=== PATIENT | female | born 1985 | race Caucasian/White ===

== ENCOUNTER 2018-03-02 20:00 | Emergency (ER) | payer OTHER ==
[2018-03-02 20:36] VITALS: RESP 16
[2018-03-02] MEDS ORDERED: HYDROcodone/APAP 5-325MG 1 EACH TAB PO STA (20:51)
--- NOTE | 2018-03-02 20:56 | ED ---
General Adult HPI - General Chief complaint: Dental/Oral Stated complaint: Dental pain Time Seen by Provider: 03/02/18 20:51 Source: patient, RN notes reviewed Mode of arrival: ambulatory Limitations: no limitations - History of Present Illness Initial comments: 32-year-old female presents to the emergency department for a chief complaint of right tooth pain 4 days. Patient states she went to urgent care 4 days ago for a was given amoxicillin which she is continuing to take. Patient states the pain has continued. Patient states she has taken Motrin and Tylenol which has not helped. Patient denies any fevers or chills at home. Patient states she is following up with [facility] on Sunday which is in 2 days. Patient complains of a dull throbbing pain on the right lower jaw. Patient states the pain is radiating to her right ear and right lower jaw. Patient states she had similar symptoms with the wisdom tooth on the other side isn't needed to be pulled. Patient has no other complaints at this time. Patient denies shortness of breath, chest pain, abdominal pain, nausea or vomiting, headache, or visual changes. Patient is not driving home today. Family member is here and will be driving her home. Family member present at bedside. Patient denies any chance of . - Related Data Home Medications Medication Instructions Recorded Confirmed [id number] 1 each PO Q6HR PRN 09/25/16 09/25/16 [Excedrin] Ibuprofen [Motrin] 400 mg PO DIRECTED PRN 09/25/16 09/25/16 Previous Rx's Medication Instructions Recorded HYDROcodone/APAP 5-325MG [[employer] 1 tab PO Q6HR PRN #10 tab 03/02/18 5-325] Allergies Allergy/AdvReac Type Severity Reaction Status Date / Time No Known Allergies Allergy Verified 09/27/16 08:41 Review of Systems ROS Statement: Those systems with pertinent positive or pertinent negative responses have been documented in the HPI. ROS Other: All systems not noted in ROS Statement are negative. Past Medical History Additional Past Medical History / Comment(s): WPW ([id number] SYNDROME), HX OF DIVERTICULITIS. History of Any Multi-Drug Resistant Organisms: None Reported Past Surgical History: Cardiac Ablation Past Anesthesia/Blood Transfusion Reactions: No Reported Reaction Additional Past Anesthesia/Blood Transfusion Reaction / Comment(s): . Past Psychological History: No Psychological Hx Reported Smoking Status: Never smoker Past Alcohol Use History: Rare Past Drug Use History: None Reported - Past Family History Mother Family Medical History: Cancer, Hypertension Additional Family Medical History / Comment(s): SKIN CANCER; BREAST CANCER; ? UTERINE CANCER. DIVERTICULITIS Father Additional Family Medical History / Comment(s): HEART STENT General Exam Limitations: no limitations General appearance: alert, in no apparent distress Head exam: Present: atraumatic, normocephalic, normal inspection Eye exam: Present: normal appearance, PERRL, EOMI. Absent: scleral icterus, conjunctival injection, periorbital swelling ENT exam: Present: normal oropharynx (Uvula midline), mucous membranes moist, TM 's normal bilaterally, other (Tooth 32 is cracked. Patient has poor dentition. Patient complains of pain around tooth 32. Pain is reproduced by tapping with a tongue blade on to 32. No drainable abscess noted. No drainage from the tooth noted.) Neck exam: Present: normal inspection, full ROM, other (No swelling noted of the right lower jaw. No swelling or redness or any indication of abscess noted to the right neck.). Absent: tenderness, meningismus, lymphadenopathy Course Vital Signs 03/02/18 03/02/18 20:34 21:03 Temperature 97.4 F L 97.0 F L Pulse Rate 70 80 Respiratory 16 16 Rate Blood Pressure 140/91 139/78 O2 Sat by Pulse 98 98 Oximetry Medical Decision Making - Medical Decision Making 32-year-old female presents to the emergency room for a chief complaint of right lower tooth pain 4 days. Patient states she has similar pain in the past with another tooth that she had have pulled by a dentist. Patient states it is worse when hot or cold hits it or she chews. Patient denies any swelling fevers. Patient denies any chills at home. Patient denies any drainage from the tooth. Patient states she went to [facility] 4 days ago and started taking amoxicillin. She has continued the amoxicillin. She was given Motrin for pain which has not helped. She was seen today primarilyy for pain relief. On exam there is a cracked tooth 32. This tooth is tender to tapping of a tongue blade. No drainable abscess noted. Patient will continue the amoxicillin. She was given a [employer] in the emergency department which helped with her pain. Patient is to continue using Motrin for pain. If pain is severe she can use a [employer], which she was given a three-day supply of. Patient does not have any prescriptions on [facility]. She is to follow-up with a dentist in 2 days on Sunday as discussed. She already has an appointment with [facility]. She was also given a referral to a primary care provider to follow-up with. She will return to the emergency Department if she has any worsening symptoms or loses any fevers. Disposition Clinical Impression: Tooth pain Disposition: HOME SELF-CARE Condition: Good Instructions: Toothache (ED) Additional Instructions: Please take Motrin for pain relief. Please take [employer] if pain is severe and Motrin is not helping. Please continue to take amoxicillin. Follow-up with the dentist in 2 days as discussed. Return to the emergency department if you have any worsening symptoms or signs of infection. Prescriptions: HYDROcodone/APAP 5-325MG [[employer] 5-325] 1 tab PO Q6HR PRN #10 tab PRN Reason: Pain Is patient prescribed a controlled substance at d/c from ED?: Yes Referrals: None,Stated [Primary Care Provider] - 1-2 days Brad Miranda DO [STAFF PHYSICIAN] - 1-2 days Time of Disposition: 20:55
[2018-03-02 21:04] VITALS: BP 139/78; PULSE 80; TEMP 97
== END 2018-03-02 21:05 | disposition home or self-care (01) ==
LOC: EC 20:00
DX: K08.89 Other specified disorders of teeth and supporting structures (principal)
CPT/HCPCS: 99283

== ENCOUNTER → 2024-01-25 | Outpatient (CLI) | payer OTHER ==
[2024-01-25 16:08] LABS: HCT 43.8 % (37.2-46.3); HGB 14.3 g/dL (12.0-15.0); MCH 29.4 pg (27.0-32.0); MCHC 32.6 g/dL (32.0-37.0); MCV 90.1 FL (80.0-97.0); Mean Platelet Volume 10.6 FL (9.5-12.2); NRBC Per 100 WBC 0 X 10*3/uL (0.00-0.01); Platelet Count 359 X 10*3/uL (140-440); RBC 4.86 X 10*6/uL (4.10-5.20); RDW 12.3 % (11.5-14.5); WBC 8.06 X 10*3/uL (4.50-10.00)
[2024-01-25 16:23] LABS: ALT 24 U/L (8-44); AST 26 U/L (13-35); Albumin 4.7 g/dL (3.8-4.9); Albumin/Globulin Ratio 1.27 Ratio (1.60-3.17); Alkaline Phosphatase 91 U/L (41-126); Blood Urea Nitrogen 12.9 mg/dL (9.0-27.0); Calcium 9.4 mg/dL (8.7-10.3); Carbon Dioxide 25.2 mmol/L (21.6-31.8); Chloride 104 mmol/L (96-109); Chol/HDL Ratio 5.84 Ratio; Globulin 3.7 g/dL (1.6-3.3); Glucose 93 mg/dL (70-110); LDL Cholesterol,Calculated 139.9 mg/dL (0.0-131.0); Potassium 4.7 mmol/L (3.5-5.5); Sodium 140 mmol/L (135-145); T4, Free (Free Thyroxine) 1.22 ng/dL (0.80-1.80); Total Bilirubin 0.3 mg/dL (0.3-1.2); Total Protein 8.4 g/dL (6.2-8.2)
== END | disposition home or self-care (01) ==
LOC: LABWHC1 09:51
PROVIDERS: ATTEND Family Medicine
DX: Z13.6 Encounter for screening for cardiovascular disorders (principal); Z13.1 Encounter for screening for diabetes mellitus
CPT/HCPCS: 36415; 80053; 80061; 82306; 83036; 84439; 84443; 85027

== ENCOUNTER → 2024-10-10 | Outpatient (CLI) | payer OTHER ==
--- NOTE | 2024-10-10 12:36 | MM ---
Reason for Exam: Clinical finding. Baseline mammogram. Indicated Problems: Pain of the left side for 3 Week(s). Lump or thickening of the left side for 3 Week(s). Patient History: Menarche at age 12. First Full-Term at age 22. Patient used Hormonal Contraceptives for 6 years. Paternal grandmother had breast cancer under age 50. Mother had breast cancer under age 50. Paternal half sister had breast cancer under age 50. Last menstrual period: 10/10/2024 Risk Values: Yue 5 year model risk: 1.0%. NCI Lifetime model risk: 18.4%. Prior Study Comparison: Patient's first Mammogram. Tissue Density: There are scattered areas of fibroglandular density. Findings: Analyzed By CAD. The pattern is symmetrical. There is a focal asymmetry in the approximate 9:00 middle position of the breast. On compression this has well-circumscribed borders and measures 0.6 cm transverse located 6 cm nipple. Additional evaluation with ultrasound is recommended. A region of pain is in the outer aspect left breast. Markers utilized over this area. Additional evaluation of this area with ultrasound is recommended. Right breast:No suspicious groups of microcalcifications, spiculated or lobular masses, architectural distortion or other secondary signs of malignancy are mammographically apparent. Overall Assessment: Incomplete: need additional imaging evaluation, BI-RAD 0 Management: Diagnostic Breast Ultrasound of the left breast. A negative mammogram report should not preclude additional follow up of suspicious palpable abnormalities. Patient should continue monthly self breast exam. A clinical breast exam by your physician is recommended on an annual basis and results should be correlated with mammographic findings. Note on Yue scores and lifetime risk: 1. A Yue score greater than 3% is considered moderate risk. If this is the case, consider specialist referral to assess eligibility for a risk reducing agent. 2. If overall lifetime risk for the development of breast cancer is 20% or higher, the patient may qualify for future screening with alternating mammogram and breast MRI. [facility], , 10/10/2024 12:13 PM. Electronically signed and approved by: Brad Low D.O. Radiologis
--- NOTE | 2024-10-10 12:39 | USB ---
Reason for Exam: Clinical finding. Patient History: Menarche at age 12. First Full-Term at age 22. Patient used Hormonal Contraceptives for 6 years. Paternal grandmother had breast cancer under age 50. Mother had breast cancer under age 50. Paternal half sister had breast cancer under age 50. Risk Values: Yue 5 year model risk: 1.0%. NCI Lifetime model risk: 18.4%. Findings: The area of palpable concern of the left breast, the medial section of the breast of the left breast, the axilla of the left breast and the retroareolar of the left breast were scanned. No solid or cystic masses are identified.. No abnormality at the palpable region and area tenderness and pain lateral left breast is identified. At the area of the mammographic finding 9:00 position left breast 6 cm multiple no discrete solid or cystic areas are identified. Short-term follow-up in 6 months is recommended. Overall Assessment: Probably benign, BI-RAD 3 Management: Diagnostic Mammogram of the left breast in 6 months. A clinical breast exam by your physician is recommended on an annual basis and results should be correlated with mammographic findings. This exam should not preclude additional follow-up of suspicious palpable abnormalities. Results were given to the patient verbally at the time of exam. [facility], , 10/10/2024 12:36 PM. Electronically signed and approved by: Brad Low D.O. Radiologis
== END | disposition home or self-care (01) ==
LOC: RADMAMWWP 10:59
PROVIDERS: ATTEND Family Medicine
DX: N64.4 Mastodynia (principal); Z80.3 Family history of malignant neoplasm of breast; R92.323 Mammographic fibroglandular density, bilateral breasts
CPT/HCPCS: 77066; 76642; G0279; 77062